=== PATIENT | male | born 1960 | race Hispanic/Latino ===

== ENCOUNTER 2023-10-14 22:35 | Emergency (ER) | payer SELFPAY ==
[~2023-10-14] VITALS: Ht 165.1 cm; Wt 117.9 kg
[2023-10-14] MEDS ORDERED: LACTATED RINGER'S 1,000 ML ONE (23:34)
[2023-10-14] MEDS ORDERED: KETOROLAC TROMETHAMINE 30 MG/ML VIAL ONE (23:34)
[2023-10-14] MEDS ORDERED: ONDANSETRON HCL INJ 2MG/ML 2ML 2 MG/ML VIAL ONE (23:34)
[2023-10-14] MEDS ORDERED: ACETAMINOPHEN 325 MG TAB ONE (23:34)
[2023-10-14] MEDS: LACTATED RINGER'S 1,000 ML INJ ONE (23:40)
[2023-10-14] MEDS: ACETAMINOPHEN 325 MG TAB PO ONE (23:40)
[2023-10-14] MEDS: ONDANSETRON HCL INJ 2MG/ML 2ML 2 MG/ML VIAL IV ONE (23:41)
[2023-10-15] MEDS ORDERED: AZITHROMYCIN250 MG PO (00:10)
[2023-10-15] MEDS ORDERED: IBUPROFEN200 MG PO (00:10)
[2023-10-15] MEDS ORDERED: CEFDINIR300 MG PO (00:10)
[2023-10-15 00:32] VITALS: O2SAT 94
[2023-10-15] MEDS: KETOROLAC TROMETHAMINE 30 MG/ML VIAL IV STA (00:33)
[2023-10-15] MEDS: LEVOFLOXACIN 500 MG TAB PO ONE (00:37)
[2023-10-15] MEDS ORDERED: CEFTRIAXONE 1 GM VIAL ONE (00:38)
[2023-10-15] MEDS ORDERED: LEVOFLOXACIN 500 MG TAB ONE (00:38)
== END 2023-10-15 01:00 | disposition home or self-care (01) ==
LOC: FSED 22:38
DX: R05.9 Cough, unspecified (principal); J18.9 Pneumonia, unspecified organism; R51.9 Headache, unspecified; R10.11 Right upper quadrant pain; R73.9 Hyperglycemia, unspecified; K76.0 Fatty (change of) liver, not elsewhere classified
CPT/HCPCS: 74176; 83605; 87040; 99283; J0696; J1885; J2405; J7121

== ENCOUNTER 2024-07-06 22:57 | Emergency (ER) | payer SELFPAY ==
[~2024-07-06] VITALS: Ht 165.1 cm; Wt 121.1 kg
[~2024-07-06 22:57] MED LIST: AZITHROMYCIN250 MG PO; CEFDINIR300 MG PO; IBUPROFEN200 MG PO
[2024-07-07] MEDS: AMLODIPINE BESYLATE 5 MG TAB PO ONE (00:45)
[2024-07-07] MEDS: SODIUM CHLORIDE 0.9% 1000ML 1,000 ML IV ONE (01:43)
[2024-07-07 03:24] VITALS: PULSE 95; RESP 16; TEMP 99
[2024-07-07 03:26] VITALS: BP 145/70; PULSE 95; RESP 16; TEMP 99; O2SAT 99
== END 2024-07-07 03:30 | disposition home or self-care (01) ==
LOC: FSED 22:59
DX: R53.1 Weakness (principal); E87.1 Hypo-osmolality and hyponatremia; I10 Essential (primary) hypertension; E11.9 Type 2 diabetes mellitus without complications
CPT/HCPCS: 71046; 80053; 81003; 82553; 84484; 85025; 85379; 87400; 99284; J7030; 93005